=== PATIENT | female | born 1995 | race Two or more races ===

== ENCOUNTER → 2024-05-07 18:25 | Outpatient (REF) | payer OTHER, SELFPAY | LOC: MRI 3T 18:25 | PROVIDERS: ATTENDING PHYSICIAN Internal Medicine Gastroenterology; FAMILY PHYSICIAN Family Medicine | DX: R93.2 Abnormal findings on diagnostic imaging of liver and biliary tract (principal) | CPT/HCPCS: 74183; A9575 ==

== ENCOUNTER → 2024-05-13 06:32 | Day surgery (SDC) | payer OTHER, SELFPAY | LOC: GI 06:32 | PROVIDERS: ATTENDING PHYSICIAN Internal Medicine Gastroenterology | DX: K62.5 Hemorrhage of anus and rectum (principal); K64.8 Other hemorrhoids | CPT/HCPCS: 45378 ==